=== PATIENT | female | born 1995 | race Caucasian/White ===

== ENCOUNTER 2020-08-16 13:12 | Emergency (ER) | payer BC, MEDICAID ==
[~2020-08-16] VITALS: Ht 172.7 cm; Wt 124.0 kg
[2020-08-16] MEDS ORDERED: ondansetron 4 MG/5 ML oral solution 5ml CUP PO ONE (13:45)
[2020-08-16] MEDS ORDERED: ondansetron 4mg rapidly disintigrating tab PO ONE (13:52)
[2020-08-16 14:09] LABS: BASOPHILS % (AUTO) 0.3 % (0-1); EOSINOPHILS # (AUTO) 0.1 X10'3 (0-0.9); EOSINOPHILS % (AUTO) 1.2 % (0-6); HEMATOCRIT 36.4 % (35.0-45.0); HEMOGLOBIN 11.9 g/dl (12.0-16.0); LYMPHOCYTES # (AUTO) 0.7 X10'3 (1.1-4.8); LYMPHOCYTES % (AUTO) 11.7 % (21-51); MEAN CORPUSCULAR HEMOGLOBIN 25.5 PG (27.0-31.0); MEAN CORPUSCULAR HGB CONC 32.6 g/dL (33.0-36.5); MEAN CORPUSCULAR VOLUME 78.1 FL (78-98); MONOCYTES # (AUTO) 0.6 X10'3 (0-0.9); MONOCYTES % (AUTO) 10.5 % (2-12); NEUTROPHILS # (AUTO) 4.3 X10'3 (1.8-7.7); NEUTROPHILS % (AUTO) 76.3 % (42-75); PLATELET COUNT 251 X10'3 (140-440); RED BLOOD COUNT 4.66 X10'6 (4.20-5.60); RED CELL DISTRIBUTION WIDTH 14.7 % (11.5-14.5); WHITE BLOOD COUNT 5.6 X10'3 (4.5-11.0)
[2020-08-16 14:23] LABS: ALANINE AMINOTRANSFERASE 58 U/L (12-78); ALBUMIN 3.8 G/DL (3.4-5.0); ALBUMIN/GLOBULIN RATIO 0.8 (1.1-1.5); ALKALINE PHOSPHATASE 60 IU/L (46-116); ANION GAP 10 (8-16); ASPARTATE AMINO TRANSFERASE 46 U/L (10-37); BILIRUBIN,TOTAL 0.3 MG/DL (0.1-1.0); BLOOD UREA NITROGEN 10 MG/DL (7-18); BUN/CREATININE RATIO 15.4 (6.6-38.0); CHLORIDE 104 MMOL/L (99-107); CREATININE 0.65 MG/DL (0.40-0.90); GLUCOSE 151 MG/DL (70-104); POTASSIUM 3.7 MMOL/L (3.5-5.1); SODIUM 139 MMOL/L (135-145); TOTAL CARBON DIOXIDE 25.5 MMOL/L (24-32); TOTAL PROTEIN 8.7 G/DL (6.4-8.2); eGFR > 90 ML/MIN
--- NOTE | 2020-08-16 15:26 | NUR ---
patient with known HTN had not taken her BP meds all day, after a recent BP of 200/134 she took her meds. continuing to monitor the patient.
[2020-08-16 16:53] VITALS: BP 183/106
--- NOTE | 2020-08-16 16:55 | NUR ---
after monitoring the patient for some time after her taking her HTN medication and the SBP was still elevated spoke with the provider letting him know that the patient is under alot of stress and continuing to take phone calls that are not helping her SBP go down and she is asking to leave and she is aware that she needs to decrease her stress level. The provider was ok with the patient leaving because he had ruled out any possible heart problems.
== END 2020-08-16 16:55 | disposition home or self-care (01) ==
LOC: ER 13:12
DX: J02.9 Acute pharyngitis, unspecified (principal); R51.9 Headache, unspecified; R07.89 Other chest pain; R11.0 Nausea; R05 Cough; Z20.828 Contact with and (suspected) exposure to other viral communicable diseases; I10 Essential (primary) hypertension; E11.9 Type 2 diabetes mellitus without complications; F41.9 Anxiety disorder, unspecified; F32.9 Major depressive disorder, single episode, unspecified
CPT/HCPCS: 36415; 71045; 80053; 84484; 85025; 93005; 99285

== ENCOUNTER 2022-04-08 15:28 | Emergency (ER) | payer MEDICAID ==
[~2022-04-08] VITALS: Ht 172.7 cm; Wt 140.0 kg
[2022-04-08 15:55] VITALS: BP 159/101
[2022-04-08 16:25] LABS: BASOPHILS % (AUTO) 0.3 % (0-1); EOSINOPHILS # (AUTO) 0.1 X10'3 (0-0.9); EOSINOPHILS % (AUTO) 1.3 % (0-6); HEMATOCRIT 36.9 % (35.0-45.0); HEMOGLOBIN 12.2 g/dl (12.0-16.0); LYMPHOCYTES # (AUTO) 2.3 X10'3 (1.1-4.8); LYMPHOCYTES % (AUTO) 22.5 % (21-51); MEAN CORPUSCULAR HEMOGLOBIN 25.7 PG (27.0-31.0); MEAN CORPUSCULAR VOLUME 77.8 FL (78-98); MEAN PLATELET VOLUME 8.9 FL (7.4-10.4); MONOCYTES # (AUTO) 0.7 X10'3 (0-0.9); MONOCYTES % (AUTO) 7.2 % (2-12); NEUTROPHILS # (AUTO) 6.9 X10'3 (1.8-7.7); NEUTROPHILS % (AUTO) 68.7 % (42-75); PLATELET COUNT 368 X10'3 (140-440); RED BLOOD COUNT 4.74 X10'6 (4.20-5.60); RED CELL DISTRIBUTION WIDTH 14.9 % (11.5-14.5)
[2022-04-08 16:42] LABS: ALANINE AMINOTRANSFERASE 49 U/L (12-78); ALBUMIN 3.7 G/DL (3.4-5.0); ALBUMIN/GLOBULIN RATIO 0.8 (1.1-1.5); ALKALINE PHOSPHATASE 52 IU/L (46-116); ANION GAP 9 (8-16); ASPARTATE AMINO TRANSFERASE 35 U/L (10-37); BILIRUBIN,TOTAL 0.4 MG/DL (0.1-1.0); BLOOD UREA NITROGEN 17 MG/DL (7-18); BUN/CREATININE RATIO 19.8 (6.6-38.0); CALCIUM 9.2 MG/DL (8.5-10.1); CHLORIDE 104 MMOL/L (99-107); CREATININE 0.86 MG/DL (0.40-0.90); GLUCOSE 142 MG/DL (70-104); LIPASE 58 U/L (73-393); POTASSIUM 3.6 MMOL/L (3.5-5.1); SODIUM 138 MMOL/L (135-145); TOTAL CARBON DIOXIDE 25.5 MMOL/L (24-32); TOTAL PROTEIN 8.6 G/DL (6.4-8.2); eGFR 79 ML/MIN
[2022-04-08] MEDS ORDERED: ketorolac trometh inj. 60 MG/2 ML VIAL IM ONE (17:25)
[2022-04-08] MEDS ORDERED: ondansetron 4mg rapidly disintigrating tab PO ONE (17:25)
[2022-04-08 18:08] LABS: CLARITY,URINE CLEAR (Clear); COLOR,URINE YELLOW (Yellow); GLUCOSE, URINE NEGATIVE (Neg); KETONES,URINE NEGATIVE (Neg); LEUKOCYTE ESTERASE ,URINE NEGATIVE (Neg); NITRITES, URINE NEGATIVE (Neg); OCCULT BLOOD,URINE NEGATIVE (Neg); PH,URINE 5.5 (4.8-8.0); PROTEIN,URINE 100 mg/dl (Neg); UROBILINOGEN,URINE 0.2 E.U/dL (0.2-1.0)
[2022-04-08 18:11] LABS: URINE HCG NEGATIVE (NEG)
[2022-04-08 18:20] LABS: UA COLLECTION TYPE CLN CATCH MIDSTREAM
[2022-04-08 18:22] LABS: BACTERIA,URINE FEW /HPF (Neg); MUCUS STRANDS MODERATE /LPF (Neg); SQUAMOUS EPITHELIAL CELL,UR FEW /LPF (FEW); WBC,URINE 0-4 /HPF (0-4)
[2022-04-08] MEDS ORDERED: CEPH-585 PO (19:10)
--- NOTE | 2022-04-08 19:21 | NUR ---
po med gvien im given
== END 2022-04-08 19:35 | disposition home or self-care (01) ==
LOC: ER 15:29
DX: R10.84 Generalized abdominal pain (principal); R11.2 Nausea with vomiting, unspecified; R80.9 Proteinuria, unspecified; E11.9 Type 2 diabetes mellitus without complications; F41.9 Anxiety disorder, unspecified; I10 Essential (primary) hypertension; Z79.899 Other long term (current) drug therapy
CPT/HCPCS: 36415; 74176; 80053; 81001; 81025; 83690; 85025; 96372; 99284; J1885

== ENCOUNTER 2022-12-14 19:43 | Emergency (ER) | payer MEDICAID ==
[~2022-12-14] VITALS: Ht 175.3 cm; Wt 119.0 kg
[2022-12-14 20:01] VITALS: BP 178/112
[2022-12-14] MEDS ORDERED: benzonatate 100mg capsule PO ONE (21:35)
[2022-12-14] MEDS ORDERED: amox tr/potassium clavulanate 875/125mg TAB PO ONE (21:35)
[2022-12-14] MEDS ORDERED: ALBU8HFA PO (21:56)
[2022-12-14] MEDS ORDERED: CODE120S2 PO (21:56)
[2022-12-14] MEDS ORDERED: AMOX-117 PO (21:56)
== END 2022-12-14 22:30 | disposition home or self-care (01) ==
LOC: ER 19:44
DX: J20.9 Acute bronchitis, unspecified (principal); Z20.822 Contact with and (suspected) exposure to COVID-19; J45.909 Unspecified asthma, uncomplicated; E11.9 Type 2 diabetes mellitus without complications; F41.9 Anxiety disorder, unspecified; F32.9 Major depressive disorder, single episode, unspecified; I10 Essential (primary) hypertension; Z79.899 Other long term (current) drug therapy
CPT/HCPCS: 87502; 87503; 87635; 93005; 99284; C9803

== ENCOUNTER 2023-01-07 06:55 | Day surgery (SDC) | payer MEDICAID ==
[~2023-01-07] VITALS: Ht 172.7 cm; Wt 126.8 kg
[~2023-01-07 06:55] MED LIST: ALBU8HFA PO; CODE120S2 PO
[2023-01-07 07:05] VITALS: BP 144/100
[2023-01-07] MEDS ORDERED: MIDAZolam 1 MG/ML 5ML VIAL ONE (07:38)
[2023-01-07] MEDS ORDERED: LIDOcaine Viscous 15ml cup ONE (07:38)
[2023-01-07] MEDS ORDERED: fentaNYL/PF 50MCG/1 ML 2ML syringe ONE (07:38)
[2023-01-07] MEDS ORDERED: LIRA0.6P SQ (07:53)
[2023-01-07] MEDS ORDERED: METF-436 PO (07:53)
[2023-01-07] MEDS ORDERED: EMPA10TA PO (07:55)
[2023-01-07] MEDS ORDERED: ENAL10TA78 PO (08:05)
[2023-01-07] MEDS ORDERED: ATOR20TA PO (08:05)
[2023-01-07] MEDS ORDERED: METO5TAB85 PO (08:05)
[2023-01-07] MEDS ORDERED: LOSA1TAB41 PO (08:05)
[2023-01-07] MEDS ORDERED: GABA-530 PO (08:05)
[2023-01-07] MEDS ORDERED: NAPR-56 PO (08:05)
[2023-01-07 09:09] VITALS: BP 163/98
[2023-01-07 09:19] VITALS: BP 177/104
[2023-01-07 09:29] VITALS: BP 168/98
[2023-01-07 09:39] VITALS: BP 166/101
== END 2023-01-07 09:50 | disposition home or self-care (01) ==
LOC: GI LAB 06:55
PROVIDERS: ATTEND Internal Medicine Gastroenterology
DX: Z01.818 Encounter for other preprocedural examination (principal); E66.01 Morbid (severe) obesity due to excess calories; Z68.41 Body mass index [BMI] 40.0-44.9, adult; E11.9 Type 2 diabetes mellitus without complications; Z87.891 Personal history of nicotine dependence; Z72.89 Other problems related to lifestyle; Z79.899 Other long term (current) drug therapy; Z79.84 Long term (current) use of oral hypoglycemic drugs
CPT/HCPCS: 43239; 99152; J2250; J3010; J7030; Z7512; A4620

== ENCOUNTER 2025-03-31 02:34 | Emergency (ER) | payer BC, MEDICAID ==
[~2025-03-31] VITALS: Ht 172.7 cm; Wt 96.2 kg
[~2025-03-31 02:34] MED LIST changes: -ALBU8HFA PO; +ATOR20TA PO; -CODE120S2 PO; +EMPA10TA PO; +ENAL10TA78 PO; +GABA-530 PO; +LIRA0.6P SQ; +LOSA1TAB41 PO; +METF-436 PO; +METO5TAB85 PO; +NAPR-56 PO
[2025-03-31 02:50] VITALS: TEMP 98.1
--- NOTE | 2025-03-31 03:03 | ELECTROCARDIOGRAPH REPORT ---
[facility] Test Date: 2025-03-31 Test Time: 03:01:36 Pat Name: OLINDA GARCIA Department: EMERGENCY ROOM Room: Gender: F [employer] Assistant: DORIAN : 1995 Requested By: JUSTUS CANTRELL Order Number: [id number] Reading MD: Measurements Intervals [place] Rate: 83 P: 46 ME: 175 QRS: 48 QRSD: 89 T: 56 QT: 390 QTc: 459 Interpretive Statements Sinus rhythm ST elev, probable normal early repol pattern Please click the below link to view image of tracing.
--- NOTE | 2025-03-31 03:10 | Physician Documentation ---
History of Present Illness ~ Chief Complaint: Cough Stated Complaint: WET COUGH Time Seen by MD: 03:08 Primary Medical Doctor: ESTELITA OSUNA 29-year-old female presenting with a cough She tells me that she had a normal day yesterday, did not feel ill or have any symptoms. She went to bed tonight, and had fallen asleep for a short period of time, when she suddenly woke up and began coughing. She reports having a harsh cough with clear sputum. She also reports pain in the left side of her chest as well as a central chest and upper abdomen. She does feel slightly short of breath. She did not take any medications, nothing else helps. No fevers or chills. No nausea vomiting or diarrhea. She has a history of bronchitis but no history of asthma. Medication Reconciliation Allergies: Coded Allergies: No Known Allergies (Unverified , 03/31/25) Scheduled Atorvastatin Calcium (Lipitor), 1 TAB PO DAILY, (Reported) Empagliflozin (Jardiance), 1 TAB PO DAILY, (Reported) Enalapril Maleate* (Vasotec*), 1 TAB PO DAILY, (Reported) Gabapentin (Gabapentin), 1 CAP PO Q8H, (Reported) Liraglutide (Victoza), 0.6 MG SQ sahil, (Reported) Losartan/Hydrochlorothiazide (Losartan-Hctz 100-12.5 Mg Tab), 1 TAB PO DAILY, (Reported) Metformin Hcl (Metformin Hcl), 1 TAB PO ONCE, (Reported) Metoclopramide HCl (Reglan), 2.5 TAB PO ONCE, (Reported) Naproxen (Naproxen), 1 TAB PO DAILY, (Reported) Past Medical History Past Medical History: Hypertension, *RENAL/*, Diabetes, Anxiety, Depression Past Surgical History: no surgical history Alcohol Use: None Drug Use: none Lives with: Family Lives In: Home Review of Systems Constitutional: Denies: fever Respiratory: Reports: cough, shortness of breath Cardiovascular: Reports: chest pain Physical Exam Vital Signs: Temperature: 98.1, Source: Temporal, Heart Rate: 87, Respiratory Rate: 20, BP: 208/94, Pulse Oximetry: 98, Weight: 96.250 Oxygen Flow Rate: 0 Physical Exam General: This is a pleasant and overall well-appearing young female, not in distress Heart: Regular rate and rhythm, normal-appearing peripheral perfusion Lungs: Clear breath sounds bilateral, normal work of breathing, normal oxygen saturation on room air. Occasional harsh cough. She does not appear in respiratory distress Extremities: Warm and well-perfused Neuro: Alert and oriented Psychiatric: Calm and cooperative with exam Progress Results/Orders Results/Orders Orders - JUSTUS CANTRELL MD Chest,Two Views (03/31/25 02:55) Completed Orders - JUSTUS CANTRELL MD Chest,Two Views (03/31/25 02:55) Electrocardiogram (03/31/25 02:57) Vital Signs 03/31/25 03/31/25 03/31/25 02:50 03:11 04:10 Temp 98.1 Pulse 87 69 Resp 20 18 16 B/P (MAP) 208/94 167/98 (121) Pulse Ox 98 96 O2 Flow Rate 0 EKG/XRAY/CT/US/VASC/MRI EKG : Additional Comment I personally interpreted the EKG and this shows: Sinus rhythm, rate 83, QTC 459, no STEMI or acute ischemic changes Chest X-Ray : Additional Comments I personally reviewed the x-ray, and it shows: No focal consolidation, pneumothorax, or pulmonary edema Medical Decision Making Differential Diagnosis The patient presents with a cough. On exam she has normal oxygen saturations, normal work of breathing, and a normal lung exam. She does have an occasional cough. Chest x-ray with no acute process. After a period of observation without treatment, her symptoms significantly improved. Overall I suspect that she may have aspirated a tiny amount while she was sleeping, or is beginning to have a viral syndrome. At this time, I feel she is safe for discharge home, I do not feel that any further workup or testing is indicated. Return precautions were given. Departure Time of Disposition: 04:22 Disposition: 01 HOME / SELF CARE / HOMELESS Impression: Primary Impression: Cough Condition: Improved Discharge Instructions: Cough, Adult Referrals: NO PRIMARY CARE PROVIDER (PCP) Education Educated: Patient Educated regarding: diagnosis, need for follow up Signature Scribe Signature: estelita Attestation: JUSTUS Morley MD Mar 31, 2025 03:09
[2025-03-31 04:10] VITALS: BP 167/98; PULSE 69; RESP 16; O2SAT 96
--- NOTE | 2025-03-31 04:19 | RADIOLOGY REPORT ---
EXAM: DI CHEST,TWO VIEWS HISTORY: acs COMPARISON: Chest x-ray dated 08/16/2020. TECHNIQUE: Frontal and lateral views of the chest were performed. FINDINGS: No pneumothorax, pulmonary edema, pleural effusions, or consolidative infiltrates. There is a calcifi ed granuloma in the right upper lobe. The heart is not enlarged. No fractures are identified about t he bony thorax. IMPRESSION: No acute intrathoracic process.
== END 2025-03-31 04:30 | disposition home or self-care (01) ==
LOC: ER 02:35
DX: R05.9 Cough, unspecified (principal); R07.9 Chest pain, unspecified; R06.02 Shortness of breath; I10 Essential (primary) hypertension; E11.9 Type 2 diabetes mellitus without complications; F41.9 Anxiety disorder, unspecified; F32.A Depression, unspecified; Z79.899 Other long term (current) drug therapy
CPT/HCPCS: 71046; 93005; 99283